=== PATIENT | male | born 2000 | race Two or more races ===

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

== ENCOUNTER 2021-04-15 18:31 | Emergency (ER) | payer MEDICAID, OTHER ==
[~2021-04-15] VITALS: Ht 180.3 cm; Wt 163.0 kg
[2021-04-15 21:55] VITALS: BP 156/83
[2021-04-15] MEDS ORDERED: DOCU-286 MT (22:01)
[2021-04-15] MEDS ORDERED: XLV MT (22:01)
[2021-04-15] MEDS ORDERED: HYDR30CR79 TP (22:01)
[2021-04-15 22:39] LABS: HEMATOCRIT 45.9 % (42.0-52.0); MEAN CORPUSCULAR VOLUME 79.5 fL (80.0-94.0); PLATELET 304 x1000/uL (130-400); RED BLOOD CELL COUNT 5.78 mill/uL (4.7-6.1); RED CELL DISTRIBUTION WIDTH 15.8 % (11.6-14.6)
== END 2021-04-16 00:14 | disposition home or self-care (01) ==
LOC: ER 22:26
DX: K64.8 Other hemorrhoids (principal); R03.0 Elevated blood-pressure reading, without diagnosis of hypertension
CPT/HCPCS: 36415; 85027; 99283

== ENCOUNTER 2022-06-14 23:43 | Emergency (ER) | payer OTHER ==
[~2022-06-14] VITALS: Ht 180.3 cm; Wt 159.1 kg
[~2022-06-14 23:43] MED LIST: DOCU-286 MT; HYDR30CR79 TP; XLV MT
[2022-06-15] MEDS ORDERED: HYDROCODONE/ACETAMINOPHEN 5/325MG TABLET PO ONE (02:30)
[2022-06-15] MEDS ORDERED: TETANUS, DIPHTHERIA, PERTUSSIS VAC/PF 0.5ML (>10YR OLD) IM ONE (02:30)
[2022-06-15] MEDS ORDERED: IBUP-2029 MT (05:09)
[2022-06-15 05:19] VITALS: BP 128/78
== END 2022-06-15 05:24 | disposition home or self-care (01) ==
LOC: ER 23:43
DX: S30.1XXA Contusion of abdominal wall, initial encounter (principal); M54.2 Cervicalgia; S80.811A Abrasion, right lower leg, initial encounter; R55 Syncope and collapse; E66.01 Morbid (severe) obesity due to excess calories; Z68.42 Body mass index [BMI] 45.0-49.9, adult; V49.59XA Passenger injured in collision with other motor vehicles in traffic accident, initial encounter; Y93.89 Activity, other specified; Y92.488 Other paved roadways as the place of occurrence of the external cause
CPT/HCPCS: 71045; 73552; 74176; 90471; 90715; 99284

== ENCOUNTER 2023-03-19 16:49 | Emergency (ER) | payer OTHER ==
[~2023-03-19] VITALS: Ht 180.3 cm; Wt 142.9 kg
[~2023-03-19 16:49] MED LIST changes: +IBUP-2029 MT
[2023-03-19 16:57] VITALS: O2SAT 98
[2023-03-19 17:35] LABS: BASOPHILS % 0.6 % (0.0-2.0); EOSINOPHILS % 0.6 % (0.0-5.0); HEMATOCRIT. 46.6 % (42.0-52.0); HEMOGLOBIN. 15.4 g/dL (14.0-18.0); LYMPHOCYTES % 15.4 % (20.0-50.0); MEAN CORPUSCULAR HEMOGLOBIN 26.5 pg (28.0-32.0); MEAN CORPUSCULAR VOLUME 80.1 fL (80.0-94.0); MEAN PLATELET VOLUME 7.3 fl (7.4-10.4); MONOCYTES % 6.9 % (2.0-8.0); NEUTROPHILS % 76.5 % (40.0-76.0); PLATELET 271 x1000/uL (130-400); RED BLOOD CELL COUNT 5.82 mill/uL (4.7-6.1)
[2023-03-19 17:41] LABS: CHLORIDE 107 mEq/L (98-107)
[2023-03-19] MEDS ORDERED: KETOROLAC 30MG/ML VIAL IV STA (21:58)
[2023-03-19] MEDS ORDERED: FAMOTIDINE 20MG/2ML VIAL IV STA (21:58)
[2023-03-19] MEDS ORDERED: SODIUM CHLORIDE 0.9% 1,000 ML IV ONE (22:00)
[2023-03-19] MEDS ORDERED: CEFTRIAXONE 1GM PREMIX 50 ML IV ONE (22:00)
[2023-03-19 23:37] LABS: CLARITY URINE CLEAR (CLEAR); COLOR URINE YELLOW (YELLOW); KETONES URINE NEGATIVE (NEGATIVE); LEUKOCYTE ESTERASE URINE NEGATIVE (NEGATIVE); NITRITE URINE NEGATIVE (NEGATIVE); OCCULT BLOOD URINE NEGATIVE (NEGATIVE); PH URINE 6.5 (4.5-8.0); PROTEIN URINE NEGATIVE (NEGATIVE); SPECIFIC GRAVITY URINE 1.014 (1.005-1.030); UROBILINOGEN URINE 0.2 E.U./dL (0.2-1.0)
[2023-03-20] MEDS ORDERED: SODIUM CHLORIDE 0.9% 1,000 ML IV ONE (03:15)
[2023-03-20] MEDS ORDERED: MORPHINE SULFATE 4 MG/ML CPJ (NOT FOR IM USE) IV ONE (03:45)
[2023-03-20 06:00] VITALS: TEMP 98
[2023-03-20 11:14] VITALS: BP 157/91; PULSE 75; RESP 25
== END 2023-03-20 11:16 | disposition short-term general hospital (02) ==
LOC: ER 16:49
DX: K81.9 Cholecystitis, unspecified (principal)
CPT/HCPCS: 80053; 81003; 83605; 83690; 85025; 85610; 36415; 76705; 96365; 96375 ×2; 99285; 74176; 96361; J0696; J3490; J1885; J7030 ×2; Z7610 ×3; J2270

== ENCOUNTER 2023-10-19 04:32 | Inpatient (IN) | payer MEDICAID, OTHER ==
[~2023-10-19] VITALS: Ht 180.3 cm; Wt 124.7 kg
[2023-10-19] MEDS: SODIUM CHLORIDE 0.9% 1,000 ML IV ONE (07:02)
[2023-10-19] MEDS: ONDANSETRON HCL 4MG/2ML INJ IV ONE (07:02)
[2023-10-19] MEDS: KETOROLAC 15MG/ML VIAL IV ONE (07:02)
[2023-10-19 07:20] LABS: BASOPHILS % 0.8 % (0.0-2.0); EOSINOPHILS % 0.4 % (0.0-5.0); HEMATOCRIT. 47.1 % (42.0-52.0); HEMOGLOBIN. 15.4 g/dL (14.0-18.0); LYMPHOCYTES % 14.7 % (20.0-50.0); MEAN CORPUSCULAR HEMOGLOBIN 26.8 pg (28.0-32.0); MEAN CORPUSCULAR HGB CONC 32.6 g/dL (31.0-37.0); MEAN CORPUSCULAR VOLUME 82.4 fL (80.0-94.0); MEAN PLATELET VOLUME 7.5 fl (7.4-10.4); MONOCYTES % 7.1 % (2.0-8.0); PLATELET 248 x1000/uL (130-400); RED BLOOD CELL COUNT 5.72 mill/uL (4.7-6.1); RED CELL DISTRIBUTION WIDTH 15.8 % (11.6-14.6); WHITE BLOOD COUNT 11.1 x1000/uL (4.5-11.0)
[2023-10-19 07:25] LABS: INR 1.1; PROTHROMBIN TIME 11.8 sec (9.6-11.0)
[2023-10-19 07:29] LABS: ALANINE AMINOTRANSFERASE 31 IU/L (10-49); ALBUMIN 4.2 g/dL (3.2-4.8); ASPARTATE AMINOTRANSFERASE 16 IU/L (<34); BILIRUBIN TOTAL 0.9 mg/dL (0.1-1.0); CALCIUM 8.9 mg/dL (8.7-10.4); CARBON DIOXIDE 26 mEq/L (21-32); CHLORIDE 106 mEq/L (98-107); CREATININE 0.9 mg/dL (0.6-1.3); GLUCOSE 94 mg/dL (70-105); POTASSIUM 3.6 mEq/L (3.5-5.1); PROTEIN TOTAL 7.1 g/dL (6.0-8.3); SODIUM 138 mEq/L (136-145); TROPONIN I HIGH SENSITIVITY 8 ng/L (3.0-53); UREA NITROGEN BLOOD 13 mg/dL (9-23)
[2023-10-19] MEDS: MORPHINE SULFATE 4 MG/ML CPJ (NOT FOR IM USE) IV NR (07:53)
[2023-10-19] MEDS: METRONIDAZOLE 500 MG PREMIX 100 ML IV SCH ×2 (08:35→17:41)
[2023-10-19] MEDS: CEFTRIAXONE 1GM PREMIX 50 ML IV NR (08:35)
[2023-10-19 09:01] LABS: CLARITY URINE CLEAR (CLEAR); COLOR URINE YELLOW (YELLOW); GLUCOSE URINE NEGATIVE (NEGATIVE); KETONES URINE NEGATIVE (NEGATIVE); LEUKOCYTE ESTERASE URINE NEGATIVE (NEGATIVE); NITRITE URINE NEGATIVE (NEGATIVE); OCCULT BLOOD URINE NEGATIVE (NEGATIVE); PROTEIN URINE NEGATIVE (NEGATIVE); SPECIFIC GRAVITY URINE 1.004 (1.005-1.030); UROBILINOGEN URINE 0.2 E.U./dL (0.2-1.0)
[2023-10-19] MEDS: MORPHINE SULFATE 4 MG/ML CPJ (NOT FOR IM USE) IV ONE (10:22)
[2023-10-19] MEDS ORDERED: IPRATROPIUM/ALBUTEROL 0.5-3(2.5)MG/3ML NEB NEB PRN (11:45)
[2023-10-19] MEDS ORDERED: CLONIDINE 0.1MG TABLET PO PRN (11:45)
[2023-10-19] MEDS ORDERED: ACETAMINOPHEN 325MG TABLET PO PRN (11:45)
[2023-10-19 12:00] VITALS: BP 107/68; PULSE 82; RESP 20; TEMP 96.6
[2023-10-19] MEDS: DEXT 5%/0.45% NACL 1000ML 1,000 ML IV SCH (12:00)
[2023-10-19] MEDS: ENOXAPARIN 40MG/0.4ML SYR SUBCUT SCH (14:01)
[2023-10-19] MEDS: ACETAMINOPHEN 325MG TABLET PO PRN (14:02)
[2023-10-19 16:00] VITALS: BP 110/55; PULSE 79; RESP 19; TEMP 96.5
[2023-10-19] MEDS: MORPHINE SULFATE 2 MG/ML CPJ (NOT FOR IM USE) IV PRN (17:15)
[2023-10-19] MEDS: MAGNESIUM/ALUMINUM HYDROXIDE/SIMETHICONE 30ML UDC PO PRN (17:52)
[2023-10-19] MEDS ORDERED: NALOXONE HCL 0.4MG/ML VIAL IV PRN (20:45)
[2023-10-19] MEDS: ENOXAPARIN 30MG/0.3ML SYR SUBCUT SCH (21:37)
[2023-10-19 23:10] VITALS: BP 107/68; PULSE 82; RESP 20; TEMP 98.1
[2023-10-20 04:00] VITALS: BP 111/63; PULSE 63; RESP 18; TEMP 98.1
[2023-10-20 08:00] VITALS: BP 126/69; PULSE 52; RESP 18; TEMP 97.5
[2023-10-20 08:48] LABS: BASOPHILS % 0.8 % (0.0-2.0); EOSINOPHILS % 1.2 % (0.0-5.0); HEMATOCRIT. 47.2 % (42.0-52.0); HEMOGLOBIN. 15.2 g/dL (14.0-18.0); LYMPHOCYTES % 30.6 % (20.0-50.0); MEAN CORPUSCULAR HEMOGLOBIN 26.8 pg (28.0-32.0); MEAN CORPUSCULAR HGB CONC 32.2 g/dL (31.0-37.0); MEAN CORPUSCULAR VOLUME 83.3 fL (80.0-94.0); MEAN PLATELET VOLUME 7.5 fl (7.4-10.4); MONOCYTES % 8.1 % (2.0-8.0); NEUTROPHILS % 59.3 % (40.0-76.0); PLATELET 213 x1000/uL (130-400); RED BLOOD CELL COUNT 5.66 mill/uL (4.7-6.1); RED CELL DISTRIBUTION WIDTH 15.8 % (11.6-14.6); WHITE BLOOD COUNT 7.7 x1000/uL (4.5-11.0)
[2023-10-20 09:34] LABS: ALANINE AMINOTRANSFERASE 45 IU/L (10-49); ALBUMIN 4.1 g/dL (3.2-4.8); ASPARTATE AMINOTRANSFERASE 27 IU/L (<34); BILIRUBIN TOTAL 1.3 mg/dL (0.1-1.0); CARBON DIOXIDE 24 mEq/L (21-32); CHLORIDE 108 mEq/L (98-107); CHOLESTEROL 73 mg/dL (<200); CREATININE 0.7 mg/dL (0.6-1.3); GLUCOSE 90 mg/dL (70-105); HDL CHOLESTEROL 22 mg/dL (>55); LDL CHOLESTEROL 39 mg/dL (5-100); PHOSPHORUS 2.9 mg/dL (2.5-4.9); POTASSIUM 3.9 mEq/L (3.5-5.1); PROTEIN TOTAL 6.8 g/dL (6.0-8.3); SODIUM 139 mEq/L (136-145); TRIGLYCERIDE 74 mg/dL (0-150)
[2023-10-20 09:47] LABS: UREA NITROGEN BLOOD < 5 mg/dL (9-23)
[2023-10-20] MEDS: CEFTRIAXONE 1,000 MG in DEXTROSE 5% WATER 50 ML IV SCH (11:11)
[2023-10-20 12:00] VITALS: BP 122/69; PULSE 47; RESP 18; TEMP 97.5
[2023-10-20 16:00] VITALS: BP 110/66; PULSE 59; RESP 19; TEMP 97.8
[2023-10-20] MEDS ORDERED: PROPOFOL 200MG/20ML VIAL IV ONE (19:10)
[2023-10-20] MEDS ORDERED: CEFAZOLIN SODIUM 1000MG/VIAL ONE (19:11)
[2023-10-20] MEDS ORDERED: GLYCOPYRROLATE 0.2 MG/ML 2ML VIAL ONE (19:24)
[2023-10-20] MEDS ORDERED: MIDAZOLAM HCL 2 MG/2 ML VIAL ONE (19:53)
[2023-10-20 20:00] VITALS: BP 112/61; PULSE 96; RESP 19; TEMP 97.5
[2023-10-20] MEDS ORDERED: POLYMYXIN B SULFATE 500000 UNITS/VIAL ONE (20:08)
[2023-10-20] MEDS ORDERED: LIDOCAINE HCL 1% 20ML VIAL (Pyxis) INJ ONE (20:08)
[2023-10-20] MEDS ORDERED: BUPIVACAINE HCL/PF 0.5% (5MG/ML) 10ML ONE (20:08)
[2023-10-20] MEDS ORDERED: FENTANYL CITRATE/PF 50MCG/ML 2ML VIAL ONE ×2 (21:54→22:31)
[2023-10-20] MEDS ORDERED: ROCURONIUM BROMIDE 10MG/ML VIAL 5ML IV ONE (22:26)
[2023-10-20] MEDS ORDERED: DEXAMETHASONE 4MG/ML 1ML VIAL ONE (22:26)
[2023-10-20] MEDS ORDERED: KETOROLAC 30MG/ML VIAL ONE (22:27)
[2023-10-20] MEDS ORDERED: ONDANSETRON HCL 4MG/2ML INJ IV PRN (22:30)
[2023-10-20] MEDS ORDERED: MEPERIDINE HCL/PF 25MG/ML CPJ IV PRN (22:30)
[2023-10-20] MEDS ORDERED: FENTANYL CITRATE/PF 50MCG/ML 2ML VIAL IV PRN (22:30)
[2023-10-20] MEDS ORDERED: SKIN ADHESIVE 0.7 GM EA TOP ONE (22:34)
[2023-10-20] MEDS: HYDROMORPHONE HCL/PF 2MG/ML CPJ IV PRN (23:25)
[2023-10-21 04:00] VITALS: BP 130/68; PULSE 81; RESP 17; TEMP 96.8
[2023-10-21] MEDS: ONDANSETRON HCL 4MG/2ML INJ IV PRN (04:33)
[2023-10-21 05:49] VITALS: BP 30/68; PULSE 17; TEMP 96.6
[2023-10-21] MEDS: METRONIDAZOLE 500MG TABLET PO SCH (06:00)
[2023-10-21 08:00] VITALS: BP 118/68; PULSE 83; RESP 20; TEMP 97.6
[2023-10-21 12:00] VITALS: BP 116/59; PULSE 78; RESP 20; TEMP 98.9
[2023-10-21 16:00] VITALS: BP 118/60; PULSE 75; RESP 20; TEMP 98.7
[2023-10-21 20:00] VITALS: BP 144/82; PULSE 86; RESP 18; TEMP 97.3
[2023-10-21] MEDS: HYDROCODONE/ACETAMINOPHEN 5/325MG TABLET PO PRN (20:11)
[2023-10-22 04:00] VITALS: BP 121/68; PULSE 83; RESP 16; TEMP 98.1
[2023-10-22 08:00] VITALS: BP 129/69; PULSE 55; RESP 20; TEMP 98.6
[2023-10-22 12:40] VITALS: BP 114/59; PULSE 66; RESP 20; TEMP 98
[2023-10-22 12:52] VITALS: BP 114/59; PULSE 64; TEMP 98; O2SAT 98
== END 2023-10-22 14:04 | disposition home or self-care (01) | DRG 263 ==
LOC: ER 04:32 → 6WST 09:07 → EDBEDREQTM 09:11 → EDBEDREQ 09:11
PROVIDERS: ADMIT Internal Medicine; ATTEND Internal Medicine
PROC: 0FT44ZZ Resection of Gallbladder, Percutaneous Endoscopic Approach (ICD-10-PCS; principal; 2023-10-20)
DX: K80.00 Calculus of gallbladder with acute cholecystitis without obstruction (principal); K82.8 Other specified diseases of gallbladder
CPT/HCPCS: 36415; 76705; 80053; 80061; 81003; 83036; 83735; 84100; 84484; 85025; 88304; 99285; J0690; J0696; J1100; J1170; J1650; J1885; J2250; J2270; J2405; J2704; J3010; J3490; J7030; J7060

== ENCOUNTER 2024-09-15 06:03 | Emergency (ER) | payer OTHER ==
[~2024-09-15] VITALS: Ht 172.7 cm; Wt 125.0 kg
[2024-09-15 06:29] VITALS: O2SAT 98
[2024-09-15] MEDS: FAMOTIDINE 20MG/2ML VIAL IV STA (07:07)
[2024-09-15] MEDS: ONDANSETRON HCL 4MG/2ML INJ IV STA (07:07)
[2024-09-15] MEDS: KETOROLAC 30MG/ML VIAL IV STA (07:07)
[2024-09-15] MEDS: SODIUM CHLORIDE 0.9% 1,000 ML IV ONE (07:07)
[2024-09-15 08:10] LABS: CLARITY URINE CLEAR (CLEAR); COLOR URINE DARK YELLOW (YELLOW); GLUCOSE URINE NEGATIVE (NEGATIVE); KETONES URINE TRACE (NEGATIVE); LEUKOCYTE ESTERASE URINE TRACE (NEGATIVE); NITRITE URINE NEGATIVE (NEGATIVE); OCCULT BLOOD URINE NEGATIVE (NEGATIVE); PROTEIN URINE 1+ (NEGATIVE); SPECIFIC GRAVITY URINE 1.028 (1.005-1.030)
[2024-09-15 08:25] LABS: BACTERIA URINE FEW; RBC URINE NONE SEEN /hpf (0-2); SQUAMOUS EPITHELIAL CELL URINE RARE /lpf (RARE/1+); WBC URINE 0-2 /hpf (0-2); YEAST URINE NONE SEEN
[2024-09-15 08:46] LABS: CHLORIDE 107 mEq/L (98-107); POTASSIUM 4.3 mEq/L (3.5-5.1); SODIUM 142 mEq/L (136-145)
[2024-09-15 08:47] LABS: CALCIUM 8.6 mg/dL (8.7-10.4); CARBON DIOXIDE 29 mEq/L (21-32)
[2024-09-15 08:51] LABS: INR 1.1; PROTHROMBIN TIME 12.6 sec (9.6-11.0)
[2024-09-15 08:52] LABS: GLUCOSE 128 mg/dL (70-105); UREA NITROGEN BLOOD 15 mg/dL (9-23)
[2024-09-15 08:54] LABS: ALANINE AMINOTRANSFERASE 20 IU/L (10-49); ALBUMIN 4.1 g/dL (3.2-4.8); ASPARTATE AMINOTRANSFERASE 19 IU/L (<34); BILIRUBIN DIRECT 0.5 mg/dL (<=3.0); BILIRUBIN TOTAL 1.3 mg/dL (0.1-1.0); HEMATOCRIT. 49.9 % (42.0-52.0); HEMOGLOBIN. 16.3 g/dL (14.0-18.0); MEAN CORPUSCULAR HGB CONC 32.7 g/dL (31.0-37.0); MEAN CORPUSCULAR VOLUME 85.9 fL (80.0-94.0); MEAN PLATELET VOLUME 7.6 fl (7.4-10.4); PLATELET 187 x1000/uL (130-400); PROTEIN TOTAL 6.6 g/dL (6.0-8.3); RED BLOOD CELL COUNT 5.81 mill/uL (4.7-6.1); RED CELL DISTRIBUTION WIDTH 14.3 % (11.6-14.6); WHITE BLOOD COUNT 14.5 x1000/uL (4.5-11.0)
[2024-09-15 08:55] LABS: DIFFERENTIAL COMMENT 1
[2024-09-15 09:08] LABS: ETHANOL BLOOD < 10 mg/dL (<10)
[2024-09-15] MEDS ORDERED: BISM-77 PO (09:28)
[2024-09-15] MEDS ORDERED: ACET-2708 MT (09:28)
[2024-09-15] MEDS ORDERED: ONDA4TAB50 PO (09:28)
[2024-09-15] MEDS ORDERED: OMEP20CA14 PO (09:28)
[2024-09-15] MEDS: ACETAMINOPHEN WITH CODEINE 300/30MG TABLET PO STA (09:44)
[2024-09-15] MEDS ORDERED: ACETAMINOPHEN 1000MG/100ML 100 ML IV ONE (09:45)
[2024-09-15 09:52] VITALS: BP 122/80; PULSE 88; RESP 18; TEMP 36.89184; O2SAT 99
[2024-09-15 10:54] LABS: PLATELET ESTIMATE NORMAL
== END 2024-09-15 09:55 | disposition home or self-care (01) ==
LOC: ER 06:19
DX: J02.9 Acute pharyngitis, unspecified (principal); R11.2 Nausea with vomiting, unspecified; K52.9 Noninfective gastroenteritis and colitis, unspecified; I88.0 Nonspecific mesenteric lymphadenitis; Z90.49 Acquired absence of other specified parts of digestive tract
CPT/HCPCS: 80076; 80048; 81003; 80320; 87430; 83690; 85025; 85610; 87070; 36415; 71045; 74176; 96361; 96374; 96375; 99285; J3490; J1885; J2405; J7030; Z7610 ×2; G0480; J0131

== ENCOUNTER 2024-09-25 16:28 | Emergency (ER) | payer OTHER ==
[~2024-09-25] VITALS: Ht 180.3 cm; Wt 124.0 kg
[~2024-09-25 16:28] MED LIST changes: +ACET-2708 MT; +BISM-77 PO; +OMEP20CA14 PO; +ONDA4TAB50 PO
[2024-09-25 16:33] VITALS: O2SAT 99
[2024-09-25 16:37] VITALS: BP 154/79; PULSE 88; RESP 18; TEMP 98.3; O2SAT 100
[2024-09-25 19:17] LABS: BASOPHILS % 0.3 % (0.0-2.0); HEMATOCRIT. 51.1 % (42.0-52.0); HEMOGLOBIN. 16.8 g/dL (14.0-18.0); LYMPHOCYTES % 6.7 % (20.0-50.0); MEAN CORPUSCULAR HEMOGLOBIN 28.1 pg (28.0-32.0); MEAN CORPUSCULAR HGB CONC 32.9 g/dL (31.0-37.0); MEAN CORPUSCULAR VOLUME 85.4 fL (80.0-94.0); MEAN PLATELET VOLUME 7.4 fl (7.4-10.4); MONOCYTES % 5.6 % (2.0-8.0); NEUTROPHILS % 87.4 % (40.0-76.0); PLATELET 295 x1000/uL (130-400); RED BLOOD CELL COUNT 5.98 mill/uL (4.7-6.1); RED CELL DISTRIBUTION WIDTH 14.6 % (11.6-14.6); WHITE BLOOD COUNT 18.8 x1000/uL (4.5-11.0)
[2024-09-25 19:21] LABS: CHLORIDE 105 mEq/L (98-107); POTASSIUM 3.8 mEq/L (3.5-5.1); SODIUM 138 mEq/L (136-145)
[2024-09-25 19:22] LABS: CALCIUM 9.6 mg/dL (8.7-10.4); CARBON DIOXIDE 25 mEq/L (21-32)
[2024-09-25 19:27] LABS: CREATININE 1.1 mg/dL (0.6-1.3); DIFFERENTIAL COMMENT 1; GLUCOSE 116 mg/dL (70-105); UREA NITROGEN BLOOD 13 mg/dL (9-23)
[2024-09-25] MEDS: ONDANSETRON HCL 4MG TABLET PO ONE (23:24)
[2024-09-25] MEDS: KETOROLAC 15MG/ML VIAL IM ONE (23:24)
[2024-09-25 23:47] LABS: CLARITY URINE CLEAR (CLEAR); COLOR URINE YELLOW (YELLOW); GLUCOSE URINE NEGATIVE (NEGATIVE); KETONES URINE NEGATIVE (NEGATIVE); LEUKOCYTE ESTERASE URINE NEGATIVE (NEGATIVE); NITRITE URINE NEGATIVE (NEGATIVE); OCCULT BLOOD URINE NEGATIVE (NEGATIVE); PROTEIN URINE NEGATIVE (NEGATIVE); SPECIFIC GRAVITY URINE 1.019 (1.005-1.030); UROBILINOGEN URINE 0.2 E.U./dL (0.2-1.0)
[2024-09-25] MEDS ORDERED: MAG-55 MT (23:55)
[2024-09-25] MEDS ORDERED: FAMO-135 MT (23:55)
== END 2024-09-26 00:40 | disposition home or self-care (01) ==
LOC: ER 16:28
DX: R10.9 Unspecified abdominal pain (principal); Z90.49 Acquired absence of other specified parts of digestive tract
CPT/HCPCS: 99285; 74176; 80048; 81003; 85025; 36415; 96372; J1885; Q0162

== ENCOUNTER 2024-10-23 13:55 | Emergency (ER) | payer OTHER ==
[~2024-10-23] VITALS: Ht 180.3 cm; Wt 125.0 kg
[~2024-10-23 13:55] MED LIST changes: +FAMO-135 MT; +MAG-55 MT
[2024-10-23 14:05] VITALS: PULSE 83; RESP 16; O2SAT 98
[2024-10-23 14:08] VITALS: BP 139/72; TEMP 37.2; O2SAT 97
[2024-10-23] MEDS ORDERED: AMOX1TAB16 MT (19:41)
[2024-10-23] MEDS ORDERED: NEOM1PAC6 TP (19:42)
[2024-10-23] MEDS: LIDOCAINE HCL/PF 1% 10 MG/ML 5ML VIAL INFIL ONE (20:48)
[2024-10-23] MEDS: BACITRACIN ZINC OINT UDPKT TOP ONE (20:48)
== END 2024-10-23 20:59 | disposition home or self-care (01) ==
LOC: ER 13:55
DX: L60.0 Ingrowing nail (principal); Z90.49 Acquired absence of other specified parts of digestive tract; Z79.899 Other long term (current) drug therapy
CPT/HCPCS: 11730; 99284; J2003; Z7610 ×3; 99283